=== PATIENT | female | born 1935 | race Caucasian/White ===

== ENCOUNTER → 2019-02-08 14:24 | Outpatient (CLI) | payer MEDICARE, OTHER, SELFPAY | PROVIDERS: Visit Provider Physician Assistant | DX: R30.0 Dysuria (principal) | CPT/HCPCS: 87086 ==

== ENCOUNTER 2019-02-08 14:39 | Emergency (ER) | payer MEDICARE, OTHER, SELFPAY ==
[2019-02-08 14:46] VITALS: BP 152/71; PULSE 65; RESP 16; TEMP 36.8; O2SAT 98; BMI 31.1
--- NOTE | 2019-02-08 14:52 | DI.RAD.S_ITS ---
PROCEDURE: XR CHEST 1V INDICATIONS: chest pain TECHNIQUE: One view of the chest was acquired. COMPARISON: [facility], , CHEST 2 VIEW, 04/26/2008, 15:43. FINDINGS: Surgical changes and devices: None. Lungs and pleura: There is pulmonary vascular congestion. No definite focal infiltrate. No pleural effusions or pneumothorax. Mediastinum: Mediastinal contours appear normal. Heart size is enlarged. Bones and chest wall: No suspicious bony lesions. Overlying soft tissues appear unremarkable. IMPRESSION: CHF changes. No definite focal infiltrate. Dictated by: Blu Moseley M.D. on 02/08/2019 at 16:01 Approved by: Blu Moseley M.D. on 02/08/2019 at 16:05
[2019-02-08 15:20] VITALS: BP 159/68; PULSE 57; RESP 15; O2SAT 97
[2019-02-08 15:27] LABS: INR 0.9 (0.9-1.3); Prothrombin Time 10.7 SECONDS (10.1-12.7)
[2019-02-08 15:30] VITALS: BP 168/61; PULSE 58; RESP 18; O2SAT 96
[2019-02-08 15:30] LABS: Add Manual Diff / Slide Review NO; Basophils Absolute Auto 0 /uL (0-100); Basophils Percent Auto 0.7 % (0-2); Eosinophils Absolute Auto 100 /uL (0-450); Eosinophils Percent Auto 2.6 % (2-4); Hematocrit 41.6 % (36-46); Hemoglobin 13.8 g/dL (12.0-16.0); Lymphocytes Absolute Auto 1600 /uL (1100-4500); Lymphocytes Percent Auto 30.6 % (25-40); Mean Corpuscular HGB Conc 33.2 % (30-36); Mean Corpuscular Hemoglobin 29.9 PG (26-34); Mean Corpuscular Volume 90.3 fL (80-100); Monocytes Absolute Auto 600 /uL (0-900); Monocytes Percent Auto 11.8 % (3-14); Neutrophils Absolute Auto 2800 /uL (1500-7000); Neutrophils Percent Auto 54.3 % (50-75); PTT Partial Thromboplastin Tim 28 SECONDS (26.4-36.2); Platelet Count 184 X10^3/uL (150-400); Red Cell Distribution Width 16.5 % (11.6-14.8); White Blood Cell Count 5.2 X10^3/uL (4.5-11.0)
[2019-02-08 15:31] LABS: Alanine Aminotransferase 14 IU/L (9-52); Albumin 4.6 g/dL (3.5-5.0); Albumin Globulin Ratio 1.4 (1.0-2.8); Alkaline Phosphatase 53 U/L (38-126); Aspartate Aminotransferase 24 IU/L (14-36); Bilirubin Total 0.6 mg/dL (0.2-1.3); Blood Urea Nitrogen 28 mg/dL (7-17); Carbon Dioxide 27 mmol/L (22-32); Chloride 102 mmol/L (98-107); Creatine Kinase 36 U/L (30-135); Estimated Glomerular Filt Rate > 60.0 mL/min (>60); Globulin 3.2 g/dL (1.7-4.1); Glucose 108 mg/dL (80-110); HEMOLYSIS 21 (0-50); Lipase 78 U/L (23-300); Potassium 4.5 mmol/L (3.4-5.1); Sodium 139 mmol/L (137-145); Total Protein 7.8 g/dL (6.3-8.2)
[2019-02-08 15:43] LABS: Troponin I < 0.012 ng/mL (0.01-0.034)
[2019-02-08 18:10] VITALS: BP 158/72; PULSE 64; RESP 18; O2SAT 98
[2019-02-08 18:20] LABS: B Type Natriuretic Peptide < 100 (<100)
[2019-02-08 19:00] VITALS: BP 161/63; PULSE 63; RESP 17; O2SAT 99
--- NOTE | 2019-02-08 19:16 | CM.SWNOTE ---
ED [employer] Pt's RN asked ANDRAE to see pt as she is a caregiver for her , was tearful and quite stressed. AUTOMOTIVE ELECTRICAL FITTER met very briefly with pt as she stated that she needed to leave in order to get home to [place] as the caregiver taking care of her needed to leave.AUTOMOTIVE ELECTRICAL FITTER provided her with the resource book for seniours. She was appreciative and said she will be looking for a survey research associate. She is aware that the stress of care giving is taking it's toll on her.
== END 2019-02-08 20:06 | disposition left against medical advice (07) ==
PROVIDERS: Emergency Medicine; Emergency Provider Emergency Medicine
DX: R53.1 Weakness (principal); M54.5 Low back pain; R00.1 Bradycardia, unspecified; Z53.20 Procedure and treatment not carried out because of patient's decision for unspecified reasons
CPT/HCPCS: 36591; 71045; 80053; 82550; 83690; 83880; 84484; 85025; 85610; 85730; 87086; 93005; 93010; 99283